=== PATIENT | male | born 1970 | race American Indian/Alaskan Native ===

== ENCOUNTER 2019-03-06 18:58 | Emergency (ER) | payer OTHER ==
[2019-03-06 19:20] VITALS: BP 142/79
[2019-03-06] MEDS ORDERED: IBUPROFEN PO ONE (21:47)
[2019-03-06] MEDS ORDERED: TRIMOX PO ONE (21:47)
[2019-03-06] MEDS ORDERED: NORCO 7.5/325 PO ONE (21:47)
--- NOTE | 2019-03-06 21:50 | Emergency Department Report ---
- General Chief complaint: Animal Bite Stated complaint: LFT LEG SPIDER BITE/PAIN Time Seen by Provider: 03/06/19 21:46 Source: patient Mode of arrival: Ambulatory Limitations: No Limitations - History of Present Illness Initial comments: 48-year-old -[place] male with no known past medical history comes in for lower left leg swelling and pain. Patient thinks that he may have been bitten by a spider last night. Patient reports walking makes his pain a 10 out of 10 and at rest pain is 8 out of 10. MD complaint: insect bite/sting -: days(s) (1) Severity scale (0 -10): 8 Quality: stabbing, aching, sharp Consistency: constant Improves with: rest Worsens with: movement Associated symptoms: denies other symptoms Treatments Prior to Arrival: none - Related Data Previous Rx's Medication Instructions Recorded Last Taken Type Amoxicillin [Trimox CAP] 500 mg PO Q8H #30 capsule 03/06/19 Unknown Rx Ibuprofen [Motrin 600 MG tab] 600 mg PO Q8H #30 tablet 03/06/19 Unknown Rx Allergies Allergy/AdvReac Type Severity Reaction Status Date / Time No Known Allergies Allergy Unverified 03/06/19 19:16 Abscess Boil HPI - HPI Chief Complaint: Animal Bite Stated Complaint: LFT LEG SPIDER BITE/PAIN Time Seen by Provider: 03/06/19 21:46 Home Medications: Previous Rx's Medication Instructions Recorded Last Taken Type Amoxicillin [Trimox CAP] 500 mg PO Q8H #30 capsule 03/06/19 Unknown Rx Ibuprofen [Motrin 600 MG tab] 600 mg PO Q8H #30 tablet 03/06/19 Unknown Rx Allergies/Adverse Reactions: Allergies Allergy/AdvReac Type Severity Reaction Status Date / Time No Known Allergies Allergy Unverified 03/06/19 19:16 ED Review of Systems ROS: Stated complaint: LFT LEG SPIDER BITE/PAIN Other details as noted in HPI Comment: All other systems reviewed and negative Skin: rash, change in color ED Past Medical Hx - Past Medical History Previous Medical History?: No - Surgical History Past Surgical History?: Yes Hx Appendectomy: Yes (January 2019) - Social History Smoking Status: Never Smoker - Medications Home Medications: Home Medications Medication Instructions Recorded Confirmed Last Taken Type Amoxicillin [Trimox CAP] 500 mg PO Q8H #30 capsule 03/06/19 Unknown Rx Ibuprofen [Motrin 600 MG tab] 600 mg PO Q8H #30 tablet 03/06/19 Unknown Rx ED Physical Exam - General Limitations: No Limitations - Head Head exam: Present: atraumatic, normocephalic - Eye Eye exam: Present: normal appearance - ENT ENT exam: Present: mucous membranes moist - Neurological Exam Neurological exam: Present: alert, oriented X3 - Expanded Skin Exam Expanded Type of lesion: Present: bite/sting Distribution of rash: LLE Description of rash: Present: tenderness, erythematous, swelling ED Course Vital Signs 03/06/19 19:17 Temperature 98.1 F Pulse Rate 73 Respiratory 20 Rate Blood Pressure 142/79 O2 Sat by Pulse 99 Oximetry Critical care attestation.: If time is entered above; I have spent that time in minutes in the direct care of this critically ill patient, excluding procedure time. ED Disposition Clinical Impression: Cellulitis of lower limb Qualifiers: Laterality: left Qualified Code(s): L03.116 - Cellulitis of left lower limb Disposition: DC- TO HOME OR SELFCARE Is pt being admited?: No Does the pt Need Aspirin: No Condition: Stable Additional Instructions: Complete antibiotics as prescribed. Pain medication as needed. Increase her water intake and taking ibuprofen. Follow up with her primary care provider in the next 3-5 days. Prescriptions: Ibuprofen [Motrin 600 MG tab] 600 mg PO Q8H #30 tablet Amoxicillin [Trimox CAP] 500 mg PO Q8H #30 capsule Referrals: PRIMARY CARE, [Primary Care Provider] - 3-5 Days
== END 2019-03-06 22:07 | disposition home or self-care (01) ==
LOC: ED 18:58
DX: L03.116 Cellulitis of left lower limb (principal); Z90.49 Acquired absence of other specified parts of digestive tract
CPT/HCPCS: 99282